=== PATIENT | male | born 1990 | race Caucasian/White ===

== ENCOUNTER 2017-03-10 17:34 | Emergency (ER) | payer BC ==
[~2017-03-10] VITALS: Ht 182.9 cm; Wt 116.7 kg
[~2017-03-10 17:34] MED LIST: AMOXICILLIN500 MG PO; AUGMENTIN875 MG PO; Amoxicillin PO; CELEXA20 MG PO; FLEXERIL10 MG PO; IMODIUM2 MG PO; MAGIC MOUTHWASH1 ML MM; MOTRIN600 MG PO; NAPROSYN500 MG PO; NOSE SPRAY30 ML BOTH NARES; PERCOCET 5/31 TABLET PO; PREDNISONE20 MG PO; Phenergan PO; SALINE NASAL SP45 ML BOTH NARES; TESSALON PERLE100 MG PO; Tylenol Regular Stre PO
== END 2017-03-10 18:38 | disposition home or self-care (01) ==
LOC: EME 17:34
DX: H61.23 Impacted cerumen, bilateral (principal)
CPT/HCPCS: 99281; 99284

== ENCOUNTER 2017-03-17 02:54 | Emergency (ER) | payer BC ==
[~2017-03-17] VITALS: Ht 182.9 cm; Wt 109.1 kg
[2017-03-17 03:55] VITALS: BP 122/70
== END 2017-03-17 03:56 | disposition home or self-care (01) ==
LOC: EME 02:54
DX: H61.21 Impacted cerumen, right ear (principal)
CPT/HCPCS: 99281; 99283